=== PATIENT | male | born 1995 | race Caucasian/White ===

== ENCOUNTER 2020-04-28 11:39 | Observation (INO) | payer SELFPAY ==
[2020-04-28] MEDS ORDERED: HYDROCODONE/ACETAMINOPHEN 5-325 MG TABLET PO ONE (11:57)
[2020-04-28] MEDS ORDERED: DIPH/PERTUSS(ACELL)/TETANUS VAC/PF 0.5 ML SYR (>=10YO) IM ONE (11:57)
--- NOTE | 2020-04-28 11:59 | ER Document Report ---
ED Medical Screen (RME) - General Chief Complaint: Hand Pain Stated Complaint: FINGER PAIN Time Seen by Provider: 04/28/20 11:54 Mode of Arrival: Ambulatory Information source: Patient Notes: 24-year-old male presented to ED for complaint of pain swelling and decreased range of motion to the third finger on the right hand. He states he cut it last week on a piece of wood. He states he did not follow-up with a provider. He states the swelling started yesterday. It is red swollen with drainage from the knuckle of the finger. He states he does not know when his last tetanus was so that has been ordered. He states his pain is a throbbing 3/5. He does not smoke he occasionally drinks about once a month and does use marijuana. He works at [employer]. I have greeted and performed a rapid initial assessment of this patient. A comprehensive ED assessment and evaluation of the patient, analysis of test results and completion of medical decision making process will be conducted by an additional ED providers. - Related Data Allergies/Adverse Reactions: No Known Allergies Allergy (Verified 04/28/20 11:55) Physical Exam - Vital signs Vitals: Temp Pulse Resp BP Pulse Ox 99.2 F 85 18 122/71 99 04/28/20 11:54 04/28/20 11:54 04/28/20 11:54 04/28/20 11:54 04/28/20 11:54 Course - Vital Signs Vital signs: Temp Pulse Resp BP Pulse Ox 99.2 F 85 18 122/71 99 04/28/20 11:54 04/28/20 11:54 04/28/20 11:54 04/28/20 11:54 04/28/20 11:54
[2020-04-28 12:25] LABS: ABSOLUTE LYMPHOCYTES (AUTO) 2.2 10^3/uL (0.5-4.7); ABSOLUTE MONOCYTES (AUTO) 1.2 10^3/uL (0.1-1.4); BASOPHILS % (AUTO) 0.2 % (0-2); EOSINOPHILS % (AUTO) 0.3 % (0-6); HEMATOCRIT 42.5 % (37.9-51.0); HEMOGLOBIN 14.7 g/dL (13.5-17.0); LYMPHOCYTES % (AUTO) 16.1 % (13-45); MEAN CORPUSCULAR HGB CONC 34.5 g/dL (32.0-36.0); MEAN CORPUSCULAR VOLUME 93 fl (80-97); MONOCYTES % (AUTO) 9.3 % (3-13); PLATELET COUNT 264 10^3/uL (150-450); RED BLOOD COUNT 4.58 10^6/uL (4.35-5.55); RED CELL DISTRIBUTION WIDTH 12.9 % (11.5-14.0); SEGMENTED NEUTROPHILS % (AUTO) 74.1 % (42-78); TOTAL CELLS COUNTED % (AUTO) 100 %; WHITE BLOOD COUNT 13.4 10^3/uL (4.0-10.5)
--- NOTE | 2020-04-28 12:46 | RADIOLOGY REPORT (SQ) ---
EXAM DESCRIPTION: HAND RIGHT 3 VIEWS IMAGES COMPLETED DATE/TIME: 04/28/2020 12:27 pm REASON FOR STUDY: Infected wound to the third finger right hand COMPARISON: None. EXAM PARAMETERS: NUMBER OF VIEWS: Three views. TECHNIQUE: AP, lateral and oblique radiographic images acquired of the right hand. LIMITATIONS: None. FINDINGS: MINERALIZATION: Normal. BONES: No acute fracture or dislocation. No worrisome bone lesions. JOINTS: There is diffuse soft tissue swelling around the right 3rd finger PIP joint. No radiopaque f oreign body or soft tissue gas. SOFT TISSUES: 3rd finger PIP joint soft tissue swelling. No foreign body. OTHER: No other significant finding. IMPRESSION: 3rd finger PIP joint region soft tissue swelling without radiopaque foreign body or soft tissue gas. No fracture. No aggressive bony erosions. TECHNICAL DOCUMENTATION: JOB ID: [id number] 2010 [email or web address]- All Rights Reserved Reading location - IP/workstation name: [email or web address]
[2020-04-28 12:53] LABS: ALBUMIN 4.3 g/dL (3.5-5.0); ALKALINE PHOSPHATASE 72 U/L (38-126); ANION GAP 6 (5-19); ASPARTATE AMINO TRANSFERASE 22 U/L (17-59); BILIRUBIN,TOTAL 1.2 mg/dL (0.2-1.3); BLOOD UREA NITROGEN 17 mg/dL (7-20); CALCIUM 9.3 mg/dL (8.4-10.2); CARBON DIOXIDE 32 mmol/L (22-30); CHLORIDE 100 mmol/L (98-107); GLUCOSE 84 mg/dL (75-110); POTASSIUM 4.1 mmol/L (3.6-5.0); TOTAL PROTEIN 7.2 g/dL (6.3-8.2)
[2020-04-28] MEDS ORDERED: CLINDAMYCIN 600 MG/D5W RTU 600 MG/50 ML RTUPB IV ONE (12:57)
[2020-04-28] MEDS ORDERED: AMPICILLIN SOD/SULBACTAM 3 GM VIAL IV ONE (12:57)
[2020-04-28] MEDS ORDERED: ONDANSETRON HCL INJ/PF 4 MG/2 ML SDV IV PRN (13:17)
[2020-04-28 13:43] LABS: ERYTHROCYTE SEDIMENTATION RATE 24 mm/hr (0-15)
[2020-04-28] MEDS: CLINDAMYCIN 600 MG/D5W RTU 600 MG/50 ML RTUPB IV SCH ×2 (15:10→21:32)
--- NOTE | 2020-04-28 16:32 | PDOC H&P ---
History of Present Illness Admission Date/PCP: 04/28/20 13:22 Patient complains of: Right Hand Pain History of Present Illness: KEV GIPSON is a 24 year old male who sustained a apparent crush injury to his right hand approximately 2 weeks ago from pressure-treated wood. He noticed over the past 24 hours increasing redness swelling and pain in his fingers most notably the middle finger and fifth digit. Patient denies altercation. States drainage started prior to presentation to the emergency room today. Denies fever or chills. Pain 5/10. Notes some numbness along the middle finger. Past Medical History Psychiatric Medical History: Denies: Depression Social History Smoking Status: Never Smoker Electronic Cigarette use?: No Frequency of Alcohol Use: Occasional Hx Recreational Drug Use: Yes Drugs: Marijuana Hx Prescription Drug Abuse: No Family History Parental Family History Reviewed: No Children Family History Reviewed: No Sibling(s) Family History Reviewed.: No Medication/Allergy Home Medications: No Home Medications 04/28/20 Allergies/Adverse Reactions: No Known Allergies Allergy (Verified 04/28/20 11:55) Review of Systems Constitutional: PRESENT: as per HPI. ABSENT: chills, fever(s), headache(s), weight gain, weight loss Eyes: ABSENT: visual disturbances Ears: ABSENT: hearing changes Cardiovascular: ABSENT: chest pain, dyspnea on exertion, edema, orthropnea, palpitations Respiratory: ABSENT: cough, hemoptysis Gastrointestinal: ABSENT: abdominal pain, constipation, diarrhea, hematemesis, hematochezia, nausea, vomiting Genitourinary: ABSENT: dysuria, hematuria Musculoskeletal: PRESENT: as per HPI Integumentary: ABSENT: rash, wounds Neurological: ABSENT: abnormal gait, abnormal speech, confusion, dizziness, focal weakness, syncope Psychiatric: ABSENT: anxiety, depression, homidical ideation, suicidal ideation Endocrine: ABSENT: cold intolerance, heat intolerance, menstrual abnormalities, polydipsia, polyuria Hematologic/Lymphatic: ABSENT: easy bleeding, easy bruising, lymphadenopathy Physical Exam Vital Signs: Temp Pulse Resp BP Pulse Ox 99.2 F 85 18 122/71 99 04/28/20 11:55 04/28/20 11:54 04/28/20 11:54 04/28/20 11:54 04/28/20 11:54 Intake & Output 06/14/20 06/15/20 06/16/20 06:59 06:59 06:59 Intake Total 50 Balance 50 Weight 77.111 kg General appearance: PRESENT: no acute distress, well-developed, well-nourished Head exam: PRESENT: atraumatic, normocephalic Eye exam: PRESENT: conjunctiva pink, EOMI, PERRLA. ABSENT: scleral icterus Ear exam: PRESENT: normal external ear exam Mouth exam: PRESENT: moist, tongue midline Neck exam: PRESENT: full ROM. ABSENT: carotid bruit, JVD, lymphadenopathy, thyromegaly Respiratory exam: PRESENT: unlabored Cardiovascular exam: PRESENT: RRR. ABSENT: diastolic murmur, rubs, systolic murmur Pulses: PRESENT: normal dorsalis pedis pul, +2 pedal pulses bilateral Vascular exam: PRESENT: normal capillary refill GI/Abdominal exam: PRESENT: normal bowel sounds, soft. ABSENT: distended, guarding, mass, organolmegaly, rebound, tenderness Rectal exam: PRESENT: deferred Musculoskeletal exam: PRESENT: other - Right hand: Swelling noted along the dorsum of the middle finger PIP joint with small transverse laceration. Erythema noted extending along the proximal phalanx. Punctate amount of purulent drainage able to be expressed from the wound. No pain with PIP joint range of motion however digit wrist in flexed position. No tenderness in the flexor sheath. Cap refill less than 2 seconds. Abrasion noted along the dorsal aspect of the fifth metacarpal with overlying eschar no active drainage or expressible purulence. Neurological exam: PRESENT: alert, awake, oriented to person, oriented to place, oriented to time, oriented to situation, CN II-XII grossly intact. ABSENT: motor sensory deficit Psychiatric exam: PRESENT: appropriate affect, normal mood. ABSENT: homicidal ideation, suicidal ideation Skin exam: PRESENT: dry, intact, warm. ABSENT: cyanosis, rash Results Laboratory Results: 04/28/20 12:05 04/28/20 12:05 04/28/20 04/28/20 12:05 12:05 WBC 13.4 H RBC 4.58 Hgb 14.7 Hct 42.5 MCV 93 MCH 32.0 MCHC 34.5 RDW 12.9 Plt Count 264 Seg Neutrophils % 74.1 Sodium 138.3 Potassium 4.1 Chloride 100 Carbon Dioxide 32 H Anion Gap 6 BUN 17 Creatinine 0.96 Est GFR ( Amer) > 60 Glucose 84 Calcium 9.3 Total Bilirubin 1.2 AST 22 Alkaline Phosphatase 72 C-Reactive Protein 63.0 H Total Protein 7.2 Albumin 4.3 04/28/20 12:55 Finger - Right Middle Finger Gram Stain - Final Impressions: Hand X-Ray 04/28/20 11:57 IMPRESSION: 3rd finger PIP joint region soft tissue swelling without radiopaque foreign body or soft tissue gas. No fracture. No aggressive bony erosions. Status: Image reviewed by nc - Radiographs have been reviewed demonstrate soft tissue swelling of the middle finger at the PIP joint no evidence of foreign body or effusion. No evidence of subcutaneous air. Assessment & Plan - Diagnosis (1) Cellulitis of right hand Is this a current diagnosis for this admission?: Yes Plan: Patient has evidence of cellulitis of the right hand there is small amount of subcutaneous purulence noted along the PIP joint but no definitive discernible abscess. Given patient's limited pain with PIP joint range of motion underlying PIP joint septic joint remains a possibility but not confirmed. At this point will start the patient on Unasyn and clindamycin prophylactically for the next 36 hours if he fails to see notable clinical improvement will consider operative irrigation and debridement.
[2020-04-28] MEDS ORDERED: AMPICILLIN SOD/SULBACTAM 3 GM VIAL IV SCH (18:00)
[2020-04-28] MEDS: AMPICILLIN SODIUM/SULBACTAM NA 3 GM in NORMAL SALINE 100 ML IV SCH ×2 (18:43→23:25)
[2020-04-28] MEDS: RINGERS SOLUTION,LACTATED 1,000 ML IV PRN (21:35)
[2020-04-28] MEDS: OXYCODONE-ACETAMINOPHEN 5-325 MG TABLET PO PRN (22:42)
[2020-04-29] MEDS: AMPICILLIN SODIUM/SULBACTAM NA 3 GM in NORMAL SALINE 100 ML IV SCH ×4 (05:12→23:00)
[2020-04-29] MEDS: CLINDAMYCIN 600 MG/D5W RTU 600 MG/50 ML RTUPB IV SCH ×3 (05:13→21:24)
[2020-04-29 06:12] LABS: ABSOLUTE EOSINOPHILS # (AUTO) 0.1 10^3/uL (0.0-0.6); ABSOLUTE LYMPHOCYTES (AUTO) 2.7 10^3/uL (0.5-4.7); ABSOLUTE MONOCYTES (AUTO) 0.8 10^3/uL (0.1-1.4); ABSOLUTE NEUT (AUTO) 5.1 10^3/uL (1.7-8.2); BASOPHILS % (AUTO) 0.5 % (0-2); EOSINOPHILS % (AUTO) 0.7 % (0-6); HEMATOCRIT 39.7 % (37.9-51.0); LYMPHOCYTES % (AUTO) 30.9 % (13-45); MEAN CORPUSCULAR HEMOGLOBIN 32.5 pg (27.0-33.4); MEAN CORPUSCULAR HGB CONC 35.2 g/dL (32.0-36.0); MEAN CORPUSCULAR VOLUME 92 fl (80-97); MONOCYTES % (AUTO) 9.6 % (3-13); PLATELET COUNT 256 10^3/uL (150-450); RED BLOOD COUNT 4.31 10^6/uL (4.35-5.55); RED CELL DISTRIBUTION WIDTH 12.8 % (11.5-14.0); SEGMENTED NEUTROPHILS % (AUTO) 58.3 % (42-78); TOTAL CELLS COUNTED % (AUTO) 100 %; WHITE BLOOD COUNT 8.8 10^3/uL (4.0-10.5)
[2020-04-29] MEDS ORDERED: ONDANSETRON HCL INJ/PF 4 MG/2 ML SDV ONE (06:33)
[2020-04-29] MEDS ORDERED: MIDAZOLAM 2 MG/2 ML INJ ONE (06:33)
[2020-04-29] MEDS ORDERED: FENTANYL CITRATE INJ/PF 100 MCG/2 ML AMPUL ONE (06:33)
[2020-04-29] MEDS ORDERED: DEXAMETHASONE SOD PHOSPHATE INJ 4 MG/1 ML VIAL ONE (06:33)
[2020-04-29] MEDS ORDERED: PROPOFOL INJ 200 MG/20 ML VIAL IV ONE (06:34)
--- NOTE | 2020-04-29 07:22 | PDOC PROGRESS REPORT ---
Subjective Progress Note for:: 04/29/20 Subjective:: Patient states his hand has improved since yesterday but still has pain and swelling of the middle finger. Denies fever chills or sweats. Reason For Visit: CELLULITIS HAND Physical Exam Vital Signs: Temp Pulse Resp BP Pulse Ox 98.7 F 75 16 141/80 H 100 04/29/20 00:00 04/29/20 00:00 04/29/20 00:00 04/29/20 00:00 04/29/20 00:00 Intake & Output 04/28/20 04/29/20 04/30/20 06:59 06:59 06:59 Intake Total 940 Balance 940 Weight 77.6 kg Musculoskeletal exam: PRESENT: other - Right upper extremity: Erythema along the level of the metacarpals dorsally notably improved. Range of motion of the MCP joints improved. Increased healing along the eschar at the fifth metacarpal. Eschar along the middle finger PIP joint remains there is palpable fluctuance dorsal and proximal to this level. No tenderness on the flexor sheath. No pain with terminal flexion or extension of the digit there is 25 degree extension lag of the PIP joint. No lymphadenopathy. Results Laboratory Results: 04/29/20 05:48 04/28/20 12:05 04/28/20 04/28/20 04/29/20 12:05 12:05 05:48 WBC 13.4 H 8.8 RBC 4.58 4.31 L Hgb 14.7 14.0 Hct 42.5 39.7 MCV 93 92 MCH 32.0 32.5 MCHC 34.5 35.2 RDW 12.9 12.8 Plt Count 264 256 Seg Neutrophils % 74.1 58.3 Sodium 138.3 Potassium 4.1 Chloride 100 Carbon Dioxide 32 H Anion Gap 6 BUN 17 Creatinine 0.96 Est GFR ( Amer) > 60 Glucose 84 Calcium 9.3 Total Bilirubin 1.2 AST 22 Alkaline Phosphatase 72 C-Reactive Protein 63.0 H Total Protein 7.2 Albumin 4.3 04/28/20 12:55 Finger - Right Middle Finger Gram Stain - Final Impressions: Hand X-Ray 04/28/20 11:57 IMPRESSION: 3rd finger PIP joint region soft tissue swelling without radiopaque foreign body or soft tissue gas. No fracture. No aggressive bony erosions. Assessment & Plan - Diagnosis (1) Cellulitis of right hand Is this a current diagnosis for this admission?: Yes Plan: Patient cellulitis of the hand has improved with IV antibiotics although he continues to have redness and palpable fluctuance along the dorsal aspect of the PIP joint given failure to see significant clinical improvement specifically at the middle finger PIP joint I have recommended proceeding with operative intervention which includes irrigation and debridement right middle finger. Risk and benefits of the surgical procedure have been explained to the patient risk including neurovascular risk, postoperative pain, postoperative stiffness, worsening or recurrent infection. Patient has verbalized understanding consented for surgical procedure. - Time Time Spent with patient: Less than 15 minutes
[2020-04-29] MEDS: RINGERS SOLUTION,LACTATED 1,000 ML IV PRN (11:28)
[2020-04-29] MEDS ORDERED: LIDOCAINE 1% INJ-PF (10 MG/ML) 30 ML SDV ONE (14:33)
[2020-04-29] MEDS ORDERED: BACITRACIN INJ 50,000 UNIT VIAL ONE (14:34)
[2020-04-29] MEDS ORDERED: BUPIVACAINE HCL 0.5 % INJ/PF 30 ML SDV ONE (15:11)
[2020-04-29] MEDS ORDERED: DIPHENHYDRAMINE HCL 50 MG/ML VIAL IV PRN (15:25)
[2020-04-29] MEDS ORDERED: PROMETHAZINE HCL INJ 25 MG/1 ML VIAL IV PRN ×2 (15:25)
[2020-04-29] MEDS ORDERED: ONDANSETRON HCL INJ/PF 4 MG/2 ML SDV IV PRN (15:25)
[2020-04-29] MEDS ORDERED: MEPERIDINE HCL/PF INJ 25 MG/1 ML DISP.SYRIN IV PRN (15:25)
[2020-04-29] MEDS ORDERED: FENTANYL CITRATE INJ/PF 100 MCG/2 ML AMPUL IV PRN ×3 (15:25)
[2020-04-29] MEDS ORDERED: MORPHINE SULFATE 10 MG/ML INJ IV PRN (15:25)
[2020-04-29] MEDS ORDERED: MEPERIDINE HCL/PF INJ 25 MG/1 ML DISP.SYRIN ONE (15:56)
--- NOTE | 2020-04-29 16:08 | Operative Report ---
Operative Report DATE OF SURGERY: 04/29/20 PREOPERATIVE DIAGNOSIS: Abscess right middle finger POSTOPERATIVE DIAGNOSIS: Same OPERATION: Irrigation debridement right middle finger abscess, PIP joint arthrotomy with irrigation and debridement SURGEON: ABDIRAHMAN DAS ANESTHESIA: LMAC TISSUE REMOVED OR ALTERED: Irritable, interval, AFB fungal culture COMPLICATIONS: None ESTIMATED BLOOD LOSS: Minimal PROCEDURE: Indication for above procedure: 24-year-old male who developed redness and swelling in his hand after sustaining a injury a couple weeks ago. Patient was found to have likely underlying abscess to the middle finger. Attempted conservative measures which included 18 hours of IV antibiotics which failed to provide significant improvement to the digit although the remaining hand cellulitis did improve. At that point decision was made to proceed with operative intervention risk and benefits of surgery procedure were explained patient verbalized understanding consented for surgical history. Procedure In Detail: Patient was seen and evaluated in the preoperative holding area. The RIGHT upper extremity was initialized and marked. Patient receiving scheduled IV antibiotics. Patient was taken back to the operative room where transferred to the operative table. Once they were adequately anesthetized a nonsterile tourniquet was placed on the upper extremity. A surgical team debriefing was performed ensuring all instrumentation was available, the surgical procedure was discussed with possible concerns reviewed. A digital block was performed utilizing 10 mL of 1% lidocaine without epinephrine. The upper extremity was prepped with Betadine and draped in a sterile fashion. A timeout was done identifying correct patient, procedure and extremity everyone in attendance agree with this and verbalized no concerns. The extremity was elevated the tourniquet was inflated to 250 mmHg. Transverse skin incision was made along the dorsum of the PIP joint. Blunt dissection was performed. Small amount of purulence was expressed superficial to the extensor tendon. Small arthrotomy was made on the ulnar border of the extensor mechanism adjacent to the lateral bands. There was mild effusion of the PIP joint no gross purulence. PIP joint was irrigated with normal saline. Nonviable skin and soft tissue was sent to microbiology. For aerobic, anaerobic, AFB and fungal culture. No purulence was expressed with range of motion of the digit. A Yair drain was then placed. Skin was closed interrupted 4-0 nylon suture. Wound was dressed with Xeroform 4 x 4's and loosely applied Coban. Sponge counts, instrument counts, needle counts counts were correct. Patient was then awoken from anesthesia. Transferred from the operating room table to the operating room stretcher. There was no intraoperative complications patient tolerated procedure well stable to PACU. Postoperative plan: Patient will follow-up as scheduled for wound check. They will call with any questions or concerns.
[2020-04-29] MEDS: OXYCODONE-ACETAMINOPHEN 5-325 MG TABLET PO PRN (17:46)
[2020-04-29] MEDS: MORPHINE SULFATE 10 MG/ML INJ IV PRN (22:53)
[2020-04-30] MEDS: MORPHINE SULFATE 10 MG/ML INJ IV PRN (04:46)
[2020-04-30] MEDS: CLINDAMYCIN 600 MG/D5W RTU 600 MG/50 ML RTUPB IV SCH (05:05)
[2020-04-30] MEDS: AMPICILLIN SODIUM/SULBACTAM NA 3 GM in NORMAL SALINE 100 ML IV SCH (05:05)
[2020-04-30 05:47] LABS: ABSOLUTE LYMPHOCYTES (AUTO) 2.7 10^3/uL (0.5-4.7); ABSOLUTE MONOCYTES (AUTO) 1.3 10^3/uL (0.1-1.4); ABSOLUTE NEUT (AUTO) 9.3 10^3/uL (1.7-8.2); BASOPHILS % (AUTO) 0.4 % (0-2); EOSINOPHILS % (AUTO) 0.1 % (0-6); HEMATOCRIT 40.8 % (37.9-51.0); HEMOGLOBIN 14.3 g/dL (13.5-17.0); LYMPHOCYTES % (AUTO) 20.3 % (13-45); MEAN CORPUSCULAR HEMOGLOBIN 32.2 pg (27.0-33.4); MEAN CORPUSCULAR HGB CONC 35.1 g/dL (32.0-36.0); MEAN CORPUSCULAR VOLUME 92 fl (80-97); MONOCYTES % (AUTO) 9.5 % (3-13); PLATELET COUNT 293 10^3/uL (150-450); RED BLOOD COUNT 4.44 10^6/uL (4.35-5.55); RED CELL DISTRIBUTION WIDTH 12.7 % (11.5-14.0); SEGMENTED NEUTROPHILS % (AUTO) 69.7 % (42-78); TOTAL CELLS COUNTED % (AUTO) 100 %; WHITE BLOOD COUNT 13.4 10^3/uL (4.0-10.5)
[2020-04-30] MEDS: OXYCODONE-ACETAMINOPHEN 5-325 MG TABLET PO PRN (07:59)
[2020-04-30 09:17] VITALS: BP 141/80
--- NOTE | 2020-04-30 11:05 | ER Document Report ---
Entered by WINNIE ZIEGLER SCRIBE 04/28/20 1246 Acting as scribe for:ASHOK FULLER MD ED Hand/Wrist Injury - General Chief Complaint: Hand Injury Stated Complaint: FINGER PAIN Time Seen by Provider: 04/28/20 11:54 Mode of Arrival: Ambulatory Information source: Patient Notes: This 24 year old male patient presents to the emergency department today with complaints of right hand pain, swelling, and purulent discharge. Patient states he noticed these symptoms first yesterday and they have rapidly progressed since then. Patient states he initially injured this hand approximately 2 weeks ago, scraping it up in several places on a piece of treated wood but he did not think anything of it until these symptoms began yesterday. - Related Data Allergies/Adverse Reactions: No Known Allergies Allergy (Verified 04/28/20 11:55) Past Medical History - General Information source: Patient - Social History Smoking Status: Never Smoker Cigarette use (# per day): No Frequency of alcohol use: Occasional Drug Abuse: Marijuana Family History: Reviewed & Not Pertinent Patient has homicidal ideation: No Review of Systems - Review of Systems Constitutional: No symptoms reported EENT: No symptoms reported Cardiovascular: No symptoms reported Respiratory: No symptoms reported Gastrointestinal: No symptoms reported Genitourinary: No symptoms reported Male Genitourinary: No symptoms reported Musculoskeletal: No symptoms reported Skin: See HPI, Lesions Hematologic/Lymphatic: No symptoms reported Neurological/Psychological: No symptoms reported -: Yes All other systems reviewed and negative Physical Exam - Vital signs Vitals: Temp Pulse Resp BP Pulse Ox 99.2 F 85 18 122/71 99 04/28/20 11:54 04/28/20 11:54 04/28/20 11:54 04/28/20 11:54 04/28/20 11:54 - Notes Notes: Physical Exam: General: Alert, appears well. HEENT: Normocephalic. Atraumatic. PERRL. Extraocular movements intact. Oropharynx clear. Neck: Supple. Non-tender. Respiratory: No respiratory distress. Clear and equal breath sounds bilaterally. Cardiovascular: Regular rate and rhythm. Abdominal: Normal Inspection. Non-tender. No distension. Normal Bowel Sounds. Back: No gross abnormalities. Extremities: Moves all four extremities. Upper extremities: see skin exam Lower extremities: Normal inspection. No edema. Normal ROM. Neurological: Normal cognition. AAOx4. Normal speech. Psychological: Normal affect. Normal Mood. Skin: There is extensive swelling to the right third finger with overlying abrasion draining purlent discharge. Full extension of third finger with pain, flexion of the third digit causes increased purulent drainage over the dorsal finger. Course - Vital Signs Vital signs: Temp Pulse Resp BP Pulse Ox 99.2 F 85 18 122/71 99 04/28/20 11:55 04/28/20 11:54 04/28/20 11:54 04/28/20 11:54 04/28/20 11:54 - Laboratory Result Diagrams: 04/28/20 12:05 04/28/20 12:05 Laboratory results interpreted by me: 04/28/20 04/28/20 12:05 12:05 WBC 13.4 H Absolute Neuts (auto) 10.0 H ESR 24 H Carbon Dioxide 32 H C-Reactive Protein 63.0 H - Consults Dr. Singh Consulted provider: will see as inpatient Discharge - Discharge Clinical Impression: Abscess of finger of right hand, Cellulitis of right hand Condition: Stable Disposition: ADMITTED INPATIENT Admitting Provider: Dr. Singh Unit Admitted: Surgical Floor I personally performed the services described in the documentation, reviewed and edited the documentation which was dictated to the scribe in my presence, and it accurately records my words and actions.
== END 2020-04-30 10:00 | disposition home or self-care (01) ==
LOC: ER 11:39 → EH 13:22 → 4N 15:07
PROVIDERS: ADMIT Orthopaedic Surgery; ATTEND Orthopaedic Surgery
DX: L02.511 Cutaneous abscess of right hand (principal); L03.113 Cellulitis of right upper limb; S61.411A Laceration without foreign body of right hand, initial encounter; X58.XXXA Exposure to other specified factors, initial encounter; W45.8XXA Other foreign body or object entering through skin, initial encounter; R20.0 Anesthesia of skin; F12.10 Cannabis abuse, uncomplicated; Z03.818 Encounter for observation for suspected exposure to other biological agents ruled out
CPT/HCPCS: 99284; 96374; 36415 ×3; 87040; 87070; 87206; 87116; 87101; 85025 ×3; 85652; 87635; 86140; 87077; 80053; 87186; 87015; 73130; 26080; G0378 ×4; J2250; J3490 ×2; J1100; J3010; J0295 ×3; J2175; J2270 ×2; J2405; J7050 ×3; J7120 ×2; J2704; C9803; 01830; 90715